=== PATIENT | male | born 1970 | race Caucasian/White ===

== ENCOUNTER 2017-09-16 01:48 | Emergency (ER) | payer MEDICAID ==
[~2017-09-16] VITALS: Ht 177.8 cm; Wt 87.2 kg
[~2017-09-16 01:48] MED LIST: CYCL-259 PO; DICL25TA PO
[2017-09-16 02:03] VITALS: BP 141/75
== END 2017-09-16 02:20 | disposition home or self-care (01) ==
LOC: ED 02:14
DX: M54.9 Dorsalgia, unspecified (principal); G89.29 Other chronic pain; Z79.899 Other long term (current) drug therapy; M25.562 Pain in left knee
CPT/HCPCS: 99281